=== PATIENT | male | born 1970 | race Caucasian/White ===

== ENCOUNTER 2018-11-04 05:37 | Emergency (ER) | payer SELFPAY ==
[~2018-11-04] VITALS: Ht 180.3 cm; Wt 70.3 kg
[2018-11-04] MEDS ORDERED: PREDNISONE10 MG PO (06:30)
[2018-11-04] MEDS ORDERED: PROAIR HFA8.5 GM INH (06:30)
== END 2018-11-04 06:28 | disposition home or self-care (01) ==
LOC: ED 05:37
DX: J45.909 Unspecified asthma, uncomplicated (principal)

== ENCOUNTER 2019-03-08 07:08 | Emergency (ER) | payer OTHER ==
[~2019-03-08] VITALS: Ht 177.8 cm; Wt 72.6 kg
[~2019-03-08 07:08] MED LIST: PREDNISONE10 MG PO; PROAIR HFA8.5 GM INH
[2019-03-08 08:09] LABS: BASO # 0.1 10*3/uL (0.0-0.1); BASO % 2.2 % (0.0-1.0); EOS # 0.8 10*3/uL (0.0-0.4); EOS % 12.5 % (1.0-4.0); HEMATOCRIT 42.7 % (42.0-52.0); HEMOGLOBIN 14.6 g/dl (14.0-18.0); LYMPH # 1.7 10*3/uL (1.3-4.4); LYMPH % 28.9 % (27.0-41.0); MEAN CELL VOLUME 96.8 fl (80.0-94.0); MEAN CORPUSCULAR HGB 33.1 pg (27.0-31.0); MEAN CORPUSCULAR HGB CONC 34.2 g/dl (33.0-37.0); MEAN PLATELET VOLUME 9.8 fl (9.6-12.3); MONO # 0.6 10*3/uL (0.1-1.0); MONO % 9.5 % (3.0-9.0); NEUT # 2.8 10*3/uL (2.3-7.9); NEUT % 46.7 % (47.0-73.0); PLATELET COUNT AUTOMATED 239 10*3/uL (130-400); RED BLOOD COUNT 4.41 10*6/uL (4.50-5.90); RED CELL DISTRI WIDTH 12.7 % (0-14.5)
[2019-03-08 08:18] LABS: ACT PARTIAL THROMBO TIME 26.5 SECONDS (20.0-32.1); INTERNATIONAL NORM RATIO 0.9 (2.0-3.5)
[2019-03-08 08:23] LABS: ALBUMIN 3.6 gm/dl (3.1-4.5); ALKALINE PHOSPHATASE 78 U/L (45-117); BUN 23 mg/dl (7-24); CHLORIDE 112 mmol/L (98-107); CREATININE 0.91 mg/dL (0.70-1.30); LIPASE 90 U/L (73-393); POTASSIUM 4.2 mmol/L (3.5-5.1); SGOT/AST 23 IU/L (3-35); SGPT/ALT 26 U/L (12-78); SODIUM 139 mmol/L (136-145); TOTAL PROTEIN 7.2 gm/dL (6.4-8.2)
[2019-03-08 08:28] LABS: TROPONIN I < 0.015 ng/ml (<0.045)
[2019-03-08] MEDS ORDERED: PREDNISONE50 MG PO (09:25)
[2019-03-08] MEDS ORDERED: ZITHROMAX250 MG PO (09:25)
== END 2019-03-08 09:45 | disposition left against medical advice (07) ==
LOC: ED 07:08
PROVIDERS: Emergency Medicine
DX: R06.00 Dyspnea, unspecified (principal); J45.909 Unspecified asthma, uncomplicated

== ENCOUNTER 2019-03-13 07:47 | Emergency (ER) | payer OTHER ==
[~2019-03-13] VITALS: Ht 180.3 cm; Wt 72.6 kg
[~2019-03-13 07:47] MED LIST changes: +PREDNISONE50 MG PO; +ZITHROMAX250 MG PO
[2019-03-13] MEDS ORDERED: PREDNISONE20 M1 PO (08:29)
[2019-03-13] MEDS ORDERED: VIBRAMYCIN100 MG PO (08:29)
== END 2019-03-13 08:45 | disposition home or self-care (01) ==
LOC: ED 07:47
DX: J20.9 Acute bronchitis, unspecified (principal); J45.909 Unspecified asthma, uncomplicated; F17.200 Nicotine dependence, unspecified, uncomplicated

== ENCOUNTER 2019-03-19 09:12 | Emergency (ER) | payer OTHER ==
[~2019-03-19] VITALS: Ht 177.8 cm; Wt 71.7 kg
[~2019-03-19 09:12] MED LIST changes: +PREDNISONE20 M1 PO; +VIBRAMYCIN100 MG PO
[2019-03-19] MEDS ORDERED: VENT7GM INH (12:16)
== END 2019-03-19 12:06 | disposition home or self-care (01) ==
LOC: ED 09:12
DX: J20.9 Acute bronchitis, unspecified (principal); J45.909 Unspecified asthma, uncomplicated; F17.200 Nicotine dependence, unspecified, uncomplicated; Z79.899 Other long term (current) drug therapy; Z79.2 Long term (current) use of antibiotics

== ENCOUNTER 2019-04-02 15:30 | Emergency (ER) | payer OTHER ==
[~2019-04-02] VITALS: Ht 177.8 cm; Wt 72.6 kg
[~2019-04-02 15:30] MED LIST changes: +VENT7GM INH
[2019-04-02] MEDS ORDERED: PROAIR HFA8.5 GM INH (15:49)
== END 2019-04-02 15:50 | disposition home or self-care (01) ==
LOC: ED 15:30
DX: R06.2 Wheezing (principal)